=== PATIENT | male | born 1950 | race Hispanic/Latino ===

== ENCOUNTER 2018-11-15 12:26 | Inpatient (IN) | payer BC, MEDICARE, OTHER ==
--- NOTE | 2018-11-15 12:54 | Emergency Department Report ---
Blank Doc - Documentation Documentation: pt states he has had constant left sided CP that began two days ago states it feels like tightness +nausea +SOB no radiation of pain no cough no fever no recent long car or plane ride, no recent surgery, no recent immobilization PMHx DM, GERD, HLD no hx of [place] former smoker, quit 1970s former drinker, quit in the no drug use CP protocol
[2018-11-15 13:21] LABS: Basophils % (Auto) 0.5 % (0.0-1.8); Eosinophils # (Auto) 0.4 K/mm3 (0.0-0.4); Eosinophils % (Auto) 5.2 % (0.0-4.3); Hematocrit 39.1 % (35.5-45.6); Lymphocytes # (Auto) 1.5 K/mm3 (1.2-5.4); Lymphocytes % (Auto) 21.3 % (13.4-35.0); Mean Corpuscular HGB Conc 33 % (32-34); Mean Corpuscular Volume 91 fl (84-94); Monocytes # (Auto) 0.7 K/mm3 (0.0-0.8); Monocytes % (Auto) 10.1 % (0.0-7.3); Platelet Count 204 K/mm3 (140-440); Red Blood Count 4.31 M/mm3 (3.65-5.03); Red Cell Distribution Width 13.3 % (13.2-15.2)
--- NOTE | 2018-11-15 13:22 | XRay Report ---
ROUTINE CHEST, TWO VIEWS: HISTORY: chest pain. The trachea, heart, mediastinal contour, lung chung and bony thorax are unremarkable. IMPRESSION: Unremarkable chest x-ray.
[2018-11-15 13:31] LABS: INR 0.89 (0.87-1.13)
[2018-11-15 13:32] LABS: Partial Thromboplastin Time 25.6 Sec. (24.2-36.6)
[2018-11-15 13:44] LABS: BUN/Creatinine Ratio 24; Blood Urea Nitrogen 26 mg/dL (9-20); Calcium 9.1 mg/dL (8.4-10.2); Hemolysis Index 5
[2018-11-15] MEDS ORDERED: SUBLIMAZE IV ONE (14:11)
[2018-11-15] MEDS ORDERED: NITRO-BID 2% TP ONE (14:11)
[2018-11-15] MEDS ORDERED: ZOFRAN IV ONE (14:11)
[2018-11-15] MEDS ORDERED: ASPIRIN PO ONE (14:12)
--- NOTE | 2018-11-15 14:20 | Emergency Department Report ---
HPI - General Chief Complaint: Chest Pain Time Seen by Provider: 11/15/18 12:51 - HPI HPI: Room 5 The patient is 68-year-old male presenting with chief complaint chest pain. Patient states he's had intermittent left-sided chest discomfort described as t ightness for the past 3 days. Patient denies shortness of breath but admits to nausea without vomiting. Patient denies diaphoresis. The patient currently gets his chest tightness a score of 4-5/10. Patient states his last stress test occurred last year and was normal but he has never had a cardiac catheterization Location: Chest Duration: Intermittent 3 days Quality: Tightness Severity: 4-5/10 Modifying factors: [see above] Context: [see above] Mode of transportation: [not driving] ED Past Medical Hx - Past Medical History Hx Hypertension: Yes Hx Diabetes: Yes - Surgical History Additional Surgical History: Left chest lumpectomy - Social History Smoking Status: Former Smoker (none since 1979) Substance Use Type: None - Medications Home Medications: Home Medications Medication Instructions Recorded Confirmed Last Taken Type Albuterol Sulfate [Proventil HFA] 6.7 gm IH PRN 10/03/14 10/03/14 Unknown History Atorvastatin [Lipitor] 40 mg PO DAILY 10/03/14 10/03/14 10/02/14 History Carvedilol [Coreg] 6.25 mg PO BID 10/03/14 10/03/14 10/02/14 History Guaifen/Dextromethorphan/PE 200 mg PO QID 10/03/14 10/03/14 10/02/14 History [Mucinex Fast-Max Congest-Cough] Metformin HCl [Glucophage] 1,000 mg PO BID 10/03/14 10/03/14 10/02/14 History Ranitidine HCl [Zantac 75 MG TAB] 150 mg PO BID 10/03/14 10/03/14 10/02/14 History Sitagliptin Phosphate [Januvia] 100 mg PO DAILY 10/03/14 10/03/14 10/02/14 History levoFLOXacin [Levaquin TAB] 500 mg PO QDAY 10/03/14 10/03/14 10/02/14 History Ramipril 5 mg PO QDAY #30 capsule 10/04/14 Unknown Rx ED Review of Systems ROS: Stated complaint: CHEST PAIN Other details as noted in HPI Constitutional: denies: diaphoresis Eyes: denies: eye pain ENT: denies: throat pain Respiratory: denies: shortness of breath Cardiovascular: chest pain Endocrine: no symptoms reported Gastrointestinal: nausea. denies: vomiting Genitourinary: denies: dysuria Musculoskeletal: denies: back pain Neurological: denies: headache Physical Exam - Physical Exam Vital Signs: Vital Signs 11/15/18 12:51 Temperature 97.5 F L Pulse Rate 73 Respiratory 16 Rate Blood Pressure 147/66 [Left] O2 Sat by Pulse 98 Oximetry Physical Exam: GENERAL: The patient is well-developed well-nourished male lying on stretcher not appearing to be in acute distress. [] HEENT: Normocephalic. Atraumatic. Extraocular motions are intact. Patient has moist mucous membranes. NECK: Supple. Trachea midline CHEST/LUNGS: Faint occasional end expiratory wheeze. There is no respiratory distress noted. HEART/CARDIOVASCULAR: Regular. There is no tachycardia. There is no gallop rub or murmur. ABDOMEN: Abdomen is soft, nontender. Patient has normal bowel sounds. There is no abdominal distention. SKIN: There is no rash. There is no edema. There is no diaphoresis. NEURO: The patient is awake, alert, and oriented. The patient is cooperative. The patient has normal speech MUSCULOSKELETAL:There is no evidence of acute injury. ED Course Vital Signs 11/15/18 12:51 Temperature 97.5 F L Pulse Rate 73 Respiratory 16 Rate Blood Pressure 147/66 [Left] O2 Sat by Pulse 98 Oximetry ED Medical Decision Making - Lab Data Result diagrams: 11/15/18 12:58 11/15/18 12:58 Laboratory Tests 11/15/18 11/15/18 11/15/18 12:58 12:58 12:58 WBC 6.9 RBC 4.31 Hgb 13.0 Hct 39.1 MCV 91 MCH 30 MCHC 33 RDW 13.3 Plt Count 204 Lymph % (Auto) 21.3 Upson % (Auto) 10.1 H Eos % (Auto) 5.2 H Baso % (Auto) 0.5 Lymph # 1.5 Upson # 0.7 Eos # 0.4 Baso # 0.0 Seg Neutrophils % 62.9 Seg Neutrophils # 4.3 PT 12.6 INR 0.89 APTT 25.6 Sodium 138 Potassium 5.0 Chloride 105.2 Carbon Dioxide 21 L Anion Gap 17 BUN 26 H Creatinine 1.1 Estimated GFR > 60 BUN/Creatinine Ratio 24 Glucose 260 H Calcium 9.1 Troponin T < 0.010 NT-Pro-B Natriuret Pep 11/15/18 12:58 WBC RBC Hgb Hct MCV MCH MCHC RDW Plt Count Lymph % (Auto) Upson % (Auto) Eos % (Auto) Baso % (Auto) Lymph # Upson # Eos # Baso # Seg Neutrophils % Seg Neutrophils # PT INR APTT Sodium Potassium Chloride Carbon Dioxide Anion Gap BUN Creatinine Estimated GFR BUN/Creatinine Ratio Glucose Calcium Troponin T NT-Pro-B Natriuret Pep 46.30 - EKG Data -: EKG Interpreted by Me EKG shows normal: sinus rhythm Rate: normal - EKG Data When compared to previous EKG there are: no significant change Interpretation: unchanged when compared t (10/03/2014) - Radiology Data Radiology results: report reviewed (chest x-ray), image reviewed (chest x-ray) interpreted by me: Chest x-ray-no focal infiltrates, no pneumothorax Chest x-ray (read by radiologist) -unremarkable chest x-ray - Differential Diagnosis ACS, pericarditis, GERD Critical care attestation.: If time is entered above; I have spent that time in minutes in the direct care of this critically ill patient, excluding procedure time. ED Disposition Clinical Impression: Chest pain Disposition: -09 OP ADMIT IP TO THIS HOSP Is pt being admited?: Yes Does the pt Need Aspirin: Yes Condition: Fair Instructions: Chest Pain (ED) Referrals: ALIDA ELIZALDE MD [Primary Care Provider] - 3-5 Days Time of Disposition: 14:22 (hospitalist notified (Dr Marin))
--- NOTE | 2018-11-15 23:38 | Event Note ---
Date: 11/15/18 see H/p inreports Chest pain r/o AL HTN T2DM HlD Vit D Deficiency
--- NOTE | 2018-11-15 23:58 | History and Physical Report ---
CHIEF COMPLAINT: Left-sided chest pain for the past 3 days. HISTORY OF PRESENT ILLNESS: A 68-year-old male with history of diabetes, hypertension, comes in for left-sided chest pain for the last 3 days. Chest pain is intermittent. Admits to nausea, but no vomiting. No diaphoresis, no shortness of breath. Chest tightness is about 5 on a scale of 1-10, intermittent in nature. No exacerbating or precipitating factors. He had a last stress test about a year ago, but never had a catheterization. No recent travel. No fever or chills. No exertional dyspnea. PAST MEDICAL HISTORY: Significant for hypertension and diabetes. PAST SURGICAL HISTORY: Left chest lumpectomy x 3. SOCIAL HISTORY: Former smoker till 1979. Stopped smoking since last 29 years. FAMILY HISTORY: Hypertension. CURRENT MEDICATIONS: On the chart including atorvastatin 40 mg once a day, glipizide 5 mg twice a day, Coreg 6.25 twice a day and ranitidine 150 mg twice a day. REVIEW OF SYSTEMS: Significant for left-sided chest pain, intermittent in nature for the last 3 days. Otherwise, review of systems negative. PHYSICAL EXAMINATION: GENERAL: Elderly male, cooperative during examination, cheerful. VITAL SIGNS: Blood pressure 195/105, temperature is 98, pulse is 90, respirations are 18, sats are 98%. HEENT: Unremarkable. Pupils are equal and reactive. NECK: Supple, no lymphadenopathy, no thyromegaly. LUNGS: Clear to auscultation and percussion. Good air entry. CARDIOVASCULAR: S1, S2 heard. No gallop, no murmur, no rub. Apical impulse in the left fifth intercostal space and midclavicular line. ABDOMEN: Soft and benign. No hepatosplenomegaly. No guarding, no rigidity. Hernial orifices were normal. EXTREMITIES: Good pedal pulses. No pedal edema. CENTRAL NERVOUS SYSTEM: Alert and oriented x 4, nonfocal exam. LABORATORY DATA: Significant for white count of 6900. H and H is 13.0 and 39.1, platelet count is 204,000. Electrolytes are normal. Glucose is 260 and 193. Troponin is less than 0.010. EKG shows normal sinus rhythm, heart rate of [address] per minute. No acute ST-T wave changes. Chest x-ray shows unremarkable chest x-ray. ASSESSMENT AND PLAN: 1. Chest pain, rule out myocardial infarction, chest pain protocol. Serial troponins. Lexiscan in the morning. 2. Type 2 diabetes. Continue glipizide and Januvia and insulin. Also, coverage. Accu-Cheks before meals and at bedtime. Check hemoglobin A1c. 3. Gastroesophageal reflux disease. Continue ranitidine. 4. Hyperlipidemia. Continue atorvastatin. 5. Hypertension. Continue lisinopril. 6. Hypomagnesemia. Continue magnesium. 7. Deep venous thrombosis prophylaxis, Lovenox 40 mg subcutaneous daily. In summary, the patient has chest pain, rule out myocardial infarction, hypertension, type 2 diabetes, hyperlipidemia. JOB# [id number] VSM/NTS
[2018-11-16] MEDS: COREG PO SCH ×2 (00:10→10:00)
[2018-11-16] MEDS: HumaLOG SUB-Q SCH ×2 (07:30→12:15)
[2018-11-16] MEDS ORDERED: GLUCOTROL PO SCH (08:00)
[2018-11-16] MEDS ORDERED: LEXISCAN IV ONE ×2 (08:15→08:26)
[2018-11-16] MEDS ORDERED: EPA PO SCH (10:00)
[2018-11-16] MEDS ORDERED: MAG-OX PO SCH (10:00)
[2018-11-16] MEDS ORDERED: MAGNESIUM GLYCINATE 400 MG PO SCH (10:00)
[2018-11-16] MEDS ORDERED: AST PO SCH (10:00)
[2018-11-16] MEDS ORDERED: ZESTRIL PO SCH (10:00)
[2018-11-16] MEDS ORDERED: PHOSPHO PO SCH (10:00)
[2018-11-16] MEDS ORDERED: VITAMIN D3 PO SCH (10:00)
[2018-11-16] MEDS ORDERED: KRILL PO SCH (10:00)
[2018-11-16] MEDS ORDERED: [UNRECOGNIZED DRUG - OTHER] PO SCH (10:00)
[2018-11-16] MEDS ORDERED: DHA PO SCH (10:00)
--- NOTE | 2018-11-16 11:39 | Treadmill Report ---
NUCLEAR PERFUSION STUDY REASON FOR STUDY: Chest pain. READING PHYSICIAN: Kun Ramirez MD IMAGING PROTOCOL: The patient received 10 mCi of Technetium 99m Tetrofosmin for resting image and 28 mCi of Technetium 99m Tetrofosmin for stress imaging. The imaging for the whole procedure was completed 30-90 minutes following the initial injection of Technetium 99m Tetrofosmin. The SPECT imaging in the 180 degree arc was performed in the right anterior oblique projection. Computerized reconstruction of the images was performed for analysis. IMAGING RESULTS: Normal cavity size from stress to rest. Normal distribution of radionuclide in the anterior, inferior, septal and apical regions. Gated SPECT shows EF of 67% with no wall motion abnormality. The patient infused Lexiscan with no EKG changes. SUMMARY: 1. Negative Lexiscan EKG. 2. Normal rest and stress myocardial perfusion scan. No significant ischemia. No wall motion abnormality. Gated SPECT shows EF of 96%. JOB# [id number] AIMEE/FRANCISCO
--- NOTE | 2018-11-16 11:53 | Discharge Summary ---
Providers - Providers Date of Admission: 11/15/18 15:32 Date of discharge: 11/16/18 Attending physician: ALEXANDRA KRIK Primary care physician: ALIDA ELIZALDE Hospitalization Condition: Stable Hospital course: Discharge Diagnoses: Chest pains, suspect costochronditis DM type 2 Disposition: DC-01 TO HOME OR SELFCARE Time spent for discharge: 35 minutes Core Measure Documentation - Palliative Care Palliative Care/ Comfort Measures: Not Applicable - Core Measures Any of the following diagnoses?: none - VTE Discharge Requirements Deep Vein Thrombosis/Pulmonary Embolism Present on Admission: No Has pt received <5 days of overlap therapy or INR<2.0: No Anticoagulant overlap therapy prescribed at discharge: No Contraindication No Overlap Therapy order at DC: Not Indicated Exam - Physical Exam Narrative exam: Gen: WDWN, NAD, Awake, Alert, Orientated HEENT: NCAT, EOMI, PERRL, OP Clear Neck: supple, no adenopathy, no thyromegaly, no JVD CVS/Heart: RRR, normal S1S2, pulses present bilaterally Chest/Lungs: CTA B, Symmetrical chest expansion, good air entry bilaterally, reproducible left chest wall tenderness just above old surgical wound, no hernia felt, no crepitus GI/Abdomen: soft, NTND, good bowel sounds, no guarding or rebound /Bladder: no suprapubic tenderness, no CVA or paraspinal tenderness Extermity/Skin: no c/c/e, no obvious rash MSK: FROM x 4 Neuro: CN 2-12 grossly intact, no new focal deficits Psych: calm - Constitutional Vitals: Temp Pulse Resp BP Pulse Ox 97.9 F 70 18 109/67 96 11/16/18 07:37 11/16/18 10:00 11/16/18 07:37 11/16/18 07:37 11/16/18 07:37 Plan Activity: other (no strenous activity unless cleared by PCP) Diet: low salt, diabetic Special Instructions: record daily BP diary, record blood sugar diary Follow up with: ALIDA ELIZALDE MD [Primary Care Provider] - 3-5 Days
[2018-11-16] MEDS: TRADJENTA PO SCH ×2 (12:25→12:27)
[2018-11-16 13:00] VITALS: BP 114/64
[2018-11-16] MEDS ORDERED: LANTUS SUB-Q SCH (22:00)
[2018-11-16] MEDS ORDERED: INSULIN GLARGINE HUM REC ANLOG 14 UNIT SUB-Q SCH (22:00)
== END 2018-11-16 12:32 | disposition home or self-care (01) | DRG 206 ==
LOC: ED 12:26 → 4A 15:32
PROVIDERS: ADMIT Internal Medicine; ATTEND Internal Medicine
DX: M94.0 Chondrocostal junction syndrome [Tietze] (principal); E78.5 Hyperlipidemia, unspecified; I10 Essential (primary) hypertension; K21.9 Gastro-esophageal reflux disease without esophagitis; E83.42 Hypomagnesemia; E11.9 Type 2 diabetes mellitus without complications; Z87.891 Personal history of nicotine dependence; Z79.899 Other long term (current) drug therapy; Z79.84 Long term (current) use of oral hypoglycemic drugs
CPT/HCPCS: 36415; 71046; 78452; 80048; 82962; 83036; 83880; 84484; 85025; 85610; 85730; 93005; 93010; 93017; 96374; 96375; G0378; A9270-GY; A9502; J2405; J2785; J3010